=== PATIENT | female | born 1990 | race Caucasian/White ===

== ENCOUNTER 2025-03-23 17:50 | Inpatient (IN) | payer OTHER, SELFPAY ==
[2025-03-23] VITALS (10 sets, daily range): BP systolic 108–122; BP diastolic 67–79; PULSE 62–76; TEMP 36.5; BMI 28.3; BMI 24.3
--- NOTE | 2025-03-23 18:11 | PD.LDHP ---
Documentation for date of: 03/23/25 OB Labor/Induct. HPI History of Present Illness Chief complaint: Precipitous labor : 3 Para: 2 Term pregnancies: 2 pregnancies: 0 Living children: 3 History of Abortions: Spontaneous and Elective: 0 History of Vaginal deliveries: 2 History of sections: No History of : No LINDA: 03/24/25 Gestational Age (weeks): 39 Gestational Age (days): 6 History of present illness: Dana Walton, a 39-week and 6-day woman (), presented to labor and delivery in active labor with full cervical dilation. She proceeded to deliver precipitously, with the baby already on her chest and the umbilical cord divided upon the clinician's arrival. The patient reports that her labor started less than an hour ago, indicating a rapid progression of labor. This precipitous delivery occurred at 39 weeks and 6 days gestation, based on her last menstrual period of June 17, 2024, and an estimated due date of March 24, 2025. Obstetric history includes: - GTPAL: - Current : - Gestational age: 39 weeks and 6 days - Last menstrual period: June 17, 2024 - Estimated due date: March 24, 2025 - history: - Current delivery: Precipitous delivery, baby delivered on patient's chest Immunizations: - Rubella: Patient is reported as immune - Blood type: A positive - Antibody screen: Negative - HIV: Negative - Hepatitis B: Negative - Rubella: Immune - Gonorrhea and Chlamydia: Negative - Serum AFP (2nd trimester): Negative - Ultrasound (11/09/2024): Normal anatomy survey - Ultrasound (02/28/2025): Estimated weight 2913 grams (49th percentile) Review of Systems Review of Systems Systems Reviewed: All systems reviewed, normal except as documented Past Medical History Surgical History SURGICAL: Negative Section Meds Home Medications and Allergies Home Medications ?Medication ?Instructions ?Recorded ?Confirmed ?Type aspirin 81 mg tablet,delayed 81 mg PO QDAY 01/10/19 01/10/19 History release (Aspir-) docosahexaenoic acid 300 mg 1 tab PO QDAY 01/10/19 01/10/19 History capsule (DHA Algal-900) vits 114-iron asparto gly 1 tab PO QDAY 01/10/19 01/10/19 History 20 mg iron-folate no.1 1 mg tablet Allergies Allergy/AdvReac Type Severity Reaction Status Date / Time No Known Allergies Allergy Verified 03/23/25 18:01 OB Exam Physical Exam Vital signs: Pulse BP 76 108/70 03/23/25 18:04 03/23/25 18:04 Constitutional Constitutional: no acute distress Routine HEENT Exam Head: Present normocephalic and atraumatic Eye: Present EOMI and PERRL ENT: Present mucous membranes moist Routine Neck Exam Neck: Present supple and trachea midline Routine Cardiovascular Exam Cardiovascular: Present RRR Routine Abdominal Exam Abdominal: Present soft and normoactive bowel sounds Routine Extremities Exam Extremities: Present full ROM Routine Skin Exam Skin: Present intact, dry and warm Routine Neurological Exam Neurological: Present alert, oriented X3 and CN II-XII intact Routine Psychiatric Exam Psychiatric: Present normal affect and normal thought process OB Assessment & Plan Assessment and Plan (1) Precipitate labor, with delivery: Status: Acute Assessment and plan: Precipitous Labor and Delivery: - Patient presented in active labor with full cervical dilatation. - Labor reportedly started less than an hour prior to arrival. - Baby delivered before clinician's entry to the room. - Umbilical cord already divided upon clinician's arrival. - placed on patient's chest. Plan: - Admit to inpatient status - Continue routine care - Call doctor's office for Group B strep results Note: No specific surgical counseling or treatment options were discussed in the original text, so those sections are not included in this reformatted version. (2) care following vaginal delivery: Status: Acute
--- NOTE | 2025-03-23 18:15 | PD.LDDELS ---
Data ([facility]) Data Hx Section: No : 3 Term: 2 : 0 Livin Abortions: Spontaneous & Theraputic: 0 Delivery Data ([facility]) Delivery Data Delivered by: Sara Roman
[2025-03-23 18:48] LABS: Basophils % (Auto) 0 % (0-2.5); Eosinophils % (Auto) 0 % (0-10); Hemoglobin 12.5 g/dL (12.0-16.0); Immature Granulocytes % (Auto) 0 % (0-0); Immature Granulocytes Auto 0.04 Thou/mm3 (0.00-0.00); Lymphocytes % (Auto) 30 % (10-50); Mean Corpuscular HGB Conc 35.7 g/dl (31.0-37.0); Mean Corpuscular Hemoglobin 28.7 pg (25.0-35.0); Mean Corpuscular Volume 81 fL (80-100); Monocytes # (Auto) 0.8 Thou/mm3 (0.0-0.8); Monocytes % (Auto) 8 % (0-12); Neutrophils # (Auto) 6.1 Thou/mm3 (1.8-7.7); Neutrophils % (Auto) 61 % (37-80); Nucleated Red Blood Cell % 0 /100 WBC (0); Platelet Count 222 Thou/mm3 (140-440); RDW Standard Deviation 40.4 fL (36.4-46.3); Red Blood Count 4.35 Miln/mm3 (4.00-5.20); White Blood Count 10.1 Thou/mm3 (3.6-11.0)
[2025-03-23 19:20] LABS: Syphilis Nonreactive (Nonreactive)
[2025-03-24 01:05] VITALS: BP 105/70; RESP 19; TEMP 36.7; O2SAT 96
[2025-03-24 05:13] VITALS: BP 105/65; RESP 18; TEMP 36.5; O2SAT 97
[2025-03-24 06:36] LABS: Basophils % (Auto) 0 % (0-2.5); Eosinophils # (Auto) 0.1 Thou/mm3 (0.0-0.5); Eosinophils % (Auto) 1 % (0-10); Hematocrit 31.5 % (36.0-46.0); Immature Granulocytes % (Auto) 0 % (0-0); Immature Granulocytes Auto 0.03 Thou/mm3 (0.00-0.00); Lymphocytes # (Auto) 2.1 Thou/mm3 (1.0-4.8); Lymphocytes % (Auto) 21 % (10-50); Mean Corpuscular HGB Conc 34.9 g/dl (31.0-37.0); Mean Corpuscular Hemoglobin 28.7 pg (25.0-35.0); Mean Corpuscular Volume 82 fL (80-100); Monocytes # (Auto) 0.9 Thou/mm3 (0.0-0.8); Monocytes % (Auto) 9 % (0-12); Neutrophils # (Auto) 6.9 Thou/mm3 (1.8-7.7); Neutrophils % (Auto) 69 % (37-80); Nucleated Red Blood Cell % 0 /100 WBC (0); Platelet Count 166 Thou/mm3 (140-440); Red Blood Count 3.83 Miln/mm3 (4.00-5.20); White Blood Count 10.1 Thou/mm3 (3.6-11.0)
--- NOTE | 2025-03-24 06:41 | ESDS_ITS ---
DS: Providers Provider Date of admission: 03/23/25 18:25 Primary care physician: Physician No Primary/Family Admitting Provider: Kar Elam MD Attending Provider on Admission: Amado Ness MD Consults: 03/24/25 05:30 Referral Routine Comment: Attending Provider on DC: Amado Ness MD Discharging Provider: Amado Ness MD DS: Diagnosis Problem List Completed Was Problem List Reviewed/Reconciled?: Yes Summary/Hosp Course Brief History: Dana Walton, a 39-week and 6-day woman (), presented to labor and delivery in active labor with full cervical dilation. She proceeded to deliver precipitously, with the baby already on her chest and the umbilical cord divided upon the clinician's arrival. The patient reports that her labor started less than an hour ago, indicating a rapid progression of labor. This precipitous delivery occurred at 39 weeks and 6 days gestation, based on her last menstrual period of June 17, 2024, and an estimated due date of March 24, 2025. Obstetric history includes: - GTPAL: - Current : - Gestational age: 39 weeks and 6 days - Last menstrual period: June 17, 2024 - Estimated due date: March 24, 2025 - history: - Current delivery: Precipitous delivery, baby delivered on patient's chest Immunizations: - Rubella: Patient is reported as immune - Blood type: A positive - Antibody screen: Negative - HIV: Negative - Hepatitis B: Negative - Rubella: Immune - Gonorrhea and Chlamydia: Negative - Serum AFP (2nd trimester): Negative - Ultrasound (11/09/2024): Normal anatomy survey - Ultrasound (02/28/2025): Estimated weight 2913 grams (49th percentile) Peripartum Data Delivery Method: Precipitous Vaginal Delivery Episiotomy Description: None Time Spent with Patient Time attestation: Total time spent providing and/or coordinating discharge services: Exam Vital Signs Temp Pulse Resp BP Pulse Ox O2 Del Method 97.7 F 76 18 105/65 97 Room Air 03/24/25 05:13 03/23/25 20:04 03/24/25 05:13 03/24/25 05:13 03/24/25 05:13 03/24/25 05:13 Discharge Plan Prescriptions/Referrals Prescriptions/Med Rec: No Action aspirin [Aspir-81] 81 mg Tablet,Delayed Release (Dr/Ec) 81 mg PO QDAY DHA Algal-900 300 mg Capsule 1 tab PO QDAY 114-iron a-g-folate 1 20 mg iron- 1 mg Tablet 1 tab PO QDAY metoclopramide HCl [Reglan] 5 mg tablet 10 mg PO BID PRN (Reason: nausea and vomiting) Qty: 30 0RF metoclopramide HCl [Reglan] 5 mg tablet 5 mg PO .bid as need Qty: 30 0RF Referrals: No Primary/Family,Physician [Primary Care Provider] - Patient/Caregiver Discharge Instructions Print Language: Chinese Planned Discharge Date 03/24/25
--- NOTE | 2025-03-24 06:44 | PD.LDDS ---
DS: Providers Provider Date of admission: 03/23/25 18:25 Primary care physician: Physician No Primary/Family Admitting Provider: Kar Elam MD Attending Provider on Admission: Amado Ness MD Consults: 03/24/25 05:30 Referral Routine Comment: Attending Provider on DC: Amado Ness MD Discharging Provider: Amado Ness MD DS: Diagnosis Problem List Completed Was Problem List Reviewed/Reconciled?: Yes Summary/Hosp Course Brief History: Dana Walton, a 39-week and 6-day woman (), presented to labor and delivery in active labor with full cervical dilation. She proceeded to deliver precipitously, with the baby already on her chest and the umbilical cord divided upon the clinician's arrival. The patient reports that her labor started less than an hour ago, indicating a rapid progression of labor. This precipitous delivery occurred at 39 weeks and 6 days gestation, based on her last menstrual period of June 17, 2024, and an estimated due date of March 24, 2025. Obstetric history includes: - GTPAL: - Current : - Gestational age: 39 weeks and 6 days - Last menstrual period: June 17, 2024 - Estimated due date: March 24, 2025 - history: - Current delivery: Precipitous delivery, baby delivered on patient's chest Immunizations: - Rubella: Patient is reported as immune - Blood type: A positive - Antibody screen: Negative - HIV: Negative - Hepatitis B: Negative - Rubella: Immune - Gonorrhea and Chlamydia: Negative - Serum AFP (2nd trimester): Negative - Ultrasound (11/09/2024): Normal anatomy survey - Ultrasound (02/28/2025): Estimated weight 2913 grams (49th percentile) Peripartum Data Delivery Method: Precipitous Vaginal Delivery Episiotomy Description: None Time Spent with Patient Time attestation: Total time spent providing and/or coordinating discharge services: Exam Vital Signs Temp Pulse Resp BP Pulse Ox O2 Del Method 97.7 F 76 18 105/65 97 Room Air 03/24/25 05:13 03/23/25 20:04 03/24/25 05:13 03/24/25 05:13 03/24/25 05:13 03/24/25 05:13 Discharge Plan Plan Patient Disposition: HOME (Self Care) Patient condition on transfer: Stable Prescriptions/Referrals Prescriptions/Med Rec: New ibuprofen 600 mg tablet 600 mg PO Q6H PRN (Reason: pain) Qty: 30 0RF Continued 114-iron a-g-folate 1 20 mg iron- 1 mg Tablet 1 tab PO QDAY Discontinued aspirin [Aspir-81] 81 mg Tablet,Delayed Release (Dr/Ec) 81 mg PO QDAY DHA Algal-900 300 mg Capsule 1 tab PO QDAY metoclopramide HCl [Reglan] 5 mg tablet 10 mg PO BID PRN (Reason: nausea and vomiting) Qty: 30 0RF metoclopramide HCl [Reglan] 5 mg tablet 5 mg PO .bid as need Qty: 30 0RF Referrals: No Primary/Family,Physician [Primary Care Provider] - Patient/Caregiver Discharge Instructions Discharge Activity: activity as tolerated Other Discharge Activity Instructions:: Follow up office 6 weeks. Print Language: Tunisian Stand Alone Forms: Dory Antoine Info., Patient Portal Info Letter Planned Discharge Date 03/24/25
--- NOTE | 2025-03-24 07:01 | ESPR_ITS ---
RE: PIPPA DE LA CRUZ : 1990 DATE OF SERVICE: 03/24/2025 S: day #1, the patient denies any problem or complaints. She is voiding. She is ambulating. She tolerated regular diet. She is passing flatus. She denies any excessive vaginal bleeding. She denies any dizziness or lightheadedness. She denies any chest pain, palpitations, shortness of breath, or lower extremity pain. O: Vital Signs: Blood pressure 105/65, heart rate 88, respirations 18, temperature 97.7, and pulse oximetry is 97% on room air. Lungs: Clear to auscultation bilaterally. Heart: Regular rate and rhythm. Abdomen: Fundus is firm, nontender. Extremities: Nontender. Skin: No gross rashes or lesions. LABORATORY DATA: Hemoglobin pre-delivery is 12.5. Post-delivery is pending. A: day #1, status post spontaneous vaginal delivery. P: Discharge home when baby is cleared. Discharge instructions given. Followup in the office in 6 weeks upon discharge. DT: 06:40:22 TT: 06:59:00 Ref: [id number] - TID: [id number]
[2025-03-24 08:00] VITALS: BP 110/70; PULSE 70; RESP 18; TEMP 36.6; O2SAT 97
[2025-03-24] MEDS: DOCUSATE SOD 100 MG CAPSULE PO (09:38)
[2025-03-24 12:00] VITALS: BP 121/74; PULSE 75; RESP 18; TEMP 36.5; O2SAT 97
[2025-03-24 18:00] VITALS: BP 115/72; PULSE 72; RESP 18; TEMP 36.6; O2SAT 97
== END 2025-03-24 20:11 | disposition home or self-care (01) | DRG 807 ==
LOC: S4SX 18:36 → S4NX 03-24 06:05 → S4SX 03-24 07:32
PROVIDERS: Admitting Provider Obstetrics & Gynecology; Visit Provider Specialist
DX: O62.3 Precipitate labor (principal); Z37.0 Single live birth; Z3A.39 39 weeks gestation of pregnancy
CPT/HCPCS: 36415; 59409; 85025; 86780; 86850; 86900; 86901; A9270

== ENCOUNTER → 2025-08-29 | Outpatient (CLI) | payer OTHER, SELFPAY ==
[2025-08-29 09:25] LABS: Basophils # (Auto) 0.0 Thou/mm3 (0.0-0.2); Basophils % (Auto) 1 % (0-2.5); Eosinophils # (Auto) 0.1 Thou/mm3 (0.0-0.5); Eosinophils % (Auto) 2 % (0-10); Hematocrit 41.4 % (36.0-46.0); Hemoglobin 13.7 g/dL (12.0-16.0); Immature Granulocytes Auto 0.01 Thou/mm3 (0.00-0.00); Lymphocytes # (Auto) 2.1 Thou/mm3 (1.0-4.8); Lymphocytes % (Auto) 37 % (10-50); Mean Corpuscular HGB Conc 33.1 g/dl (31.0-37.0); Mean Corpuscular Hemoglobin 28.5 pg (25.0-35.0); Mean Corpuscular Volume 86 fL (80-100); Monocytes # (Auto) 0.4 Thou/mm3 (0.0-0.8); Monocytes % (Auto) 8 % (0-12); Neutrophils # (Auto) 2.9 Thou/mm3 (1.8-7.7); Neutrophils % (Auto) 53 % (37-80); Nucleated Red Blood Cell # 0.00 Thou/mm3 (0.00-0.00); Nucleated Red Blood Cell % 0 /100 WBC (0); Platelet Count 218 Thou/mm3 (140-440); RDW Standard Deviation 38.6 fL (36.4-46.3); Red Blood Count 4.80 Miln/mm3 (4.00-5.20); White Blood Count 5.6 Thou/mm3 (3.6-11.0)
[2025-08-29 09:34] LABS: Alanine Aminotransferase 32 U/L (10-49); Albumin, Serum 5.1 gm/dL (3.5-5.0); Albumin/Globulin Ratio 2.4 (1.2-2.2); Alkaline Phosphatase 65 U/L (46-116); Anion Gap 9 (7-16); Aspartate Amino Transferase 29 U/L (0-34); BUN/Creatinine Ratio 15 Ratio (12-20); Bilirubin,Total 0.4 mg/dL (0.3-1.2); Blood Urea Nitrogen 12 mg/dL (9-23); Calcium 9.8 mg/dL (8.3-10.6); Calcium (Corrected) 9.8 mg/dL (8.5-10.1); Carbon Dioxide 30.1 mMol/L (20.0-31.0); Cardiac Risk Estimate 2.4 RATIO (3.7-5.6); Chloride 106 mMol/L (98-107); Cholesterol 208 mg/dL (132-200); Creatinine (Component) 0.8 mg/dL (0.6-1.3); Globulin 2.1 gm/dL (2.3-3.5); Glucose 88 mg/dL (74-106); HDL Cholesterol 86 mg/dL (40-60); LDL Cholesterol,Calculated 113 mg/dL (0-130); Osmolality,Calculated 287 (275-295); Potassium 4.5 mMol/L (3.4-5.1); Sodium 145 mMol/L (136-145); Thyroid Stimulating Hormone 1.49 uIU/mL (0.55-4.78); Total Protein 7.2 gm/dL (5.7-8.2); Triglycerides 46 mg/dL (30-150); eGFR > 60 See Note
[2025-08-29 09:38] LABS: Ferritin 29 ng/mL (7.3-270.7); Folate 12.96 ng/mL (>5.38); Iron 64 mcg/dL (50-170); Percent Iron Saturation 18 % (20-55); Total Iron Binding Capacity 345 mcg/dL (250-425); Unsaturated Iron Binding 281 (225-295); Vitamin B12 803 pg/mL (211-911)
[2025-08-29 09:42] LABS: Glucose Estimated Average 100 mg/dL (80-131); Hemoglobin A1C 5.1 % Hgb (4.8-6.0)
[2025-08-29 14:33] LABS: Cocci Serology, IgM Positive (Negative)
[2025-08-29 14:35] LABS: Cocid Sro, CF/ID (UCD) NO CHG* See Sep Rpt
== END | disposition home or self-care (01) ==
PROVIDERS: PCP Student in an Organized Health Care Education/Training Program; Referring Provider Student in an Organized Health Care Education/Training Program; Visit Provider Student in an Organized Health Care Education/Training Program
DX: J32.9 Chronic sinusitis, unspecified (principal); R05.9 Cough, unspecified; D64.9 Anemia, unspecified; Z83.3 Family history of diabetes mellitus; Z82.49 Family history of ischemic heart disease and other diseases of the circulatory system
CPT/HCPCS: 36415; 80053; 80061; 82607; 82728; 82746; 83036; 83540; 83550; 84443; 85025; 86635